=== PATIENT | male | born 1985 | race Caucasian/White ===

== ENCOUNTER 2020-07-01 13:54 | Emergency (ER) | payer OTHER ==
[~2020-07-01 13:54] MED LIST: PROCTOFOAM-HC 110 GM PR
[2020-07-01 14:55] LABS: BASOPHIL 0.7 % (0-2); EOSINOPHIL 0.6 % (0-5); LYMPHOCYTE 5.7 % (15-48); MCH 33.7 pg (25.0-31.0); MCHC 35.7 g/dL (32.0-36.0); MCV 94.4 fL (78.0-100.0); MONOCYTE 1.8 % (0-12); MPV 9.4 fL (6.0-9.5); NRBC 0; PLT 317 K/uL (150-400); RBC 4.98 M/uL (4.70-6.00); RDW 12.9 % (11.5-14.0); WBC 8.8 K/uL (4.0-10.5)
[2020-07-01 15:16] LABS: HGB 16.8 g/dl (13.2-18.0); NEUTROPHIL 90.9 % (41-80)
[2020-07-01 15:24] LABS: ACETAMINOPHEN (TYLENOL) 6.4 ug/mL (10.0-30.0); ALBUMIN 4.1 g/dL (3.4-5.0); BILIRUBIN - TOTAL 1.8 mg/dL (0.2-1.0); BUN/CREAT RATIO (CALC) 18.8 RATIO; CREATININE 0.96 mg/dL (0.67-1.17); GLOBULIN (CALCULATION) 3.6 g/dL; TOTAL PROTEIN 7.7 g/dL (6.4-8.2)
[2020-07-01 16:30] LABS: BILIRUBIN 2+ mg/dL (NEGATIVE); BLOOD NEGATIVE Ery/uL (NEGATIVE); CLARITY CLEAR (CLEAR); COLOR YELLOW (YELLOW); GLUCOSE (U) NORMAL (NORMAL); LEUKOCYTES NEGATIVE Leu/uL (NEGATIVE); NITRITE NEGATIVE (NEGATIVE); PROTEIN TRACE (LOW) mg/dL (NEGATIVE); pH 6.5 (5.0-9.0)
[2020-07-01 16:38] LABS: BACTERIA 1+; MUCOUS TRACE; URINARY WBC RARE
[2020-07-01 16:39] LABS: AMPHETAMINES POSITIVE (NEGATIVE); BARBITURATES NEGATIVE (NEGATIVE); ECSTASY (MDMA) NEGATIVE (NEGATIVE); MARIJUANA (THC) POSITIVE (NEGATIVE); METHADONE NEGATIVE (NEGATIVE); OPIATES NEGATIVE (NEGATIVE); OXYCODONE NEGATIVE (NEGATIVE)
[2020-07-01] MEDS ORDERED: ONDANSETRON ODT4 MG PO (17:17)
== END 2020-07-01 17:36 | disposition home or self-care (01) ==
LOC: FER 13:54
PROVIDERS: Emergency Medicine
DX: K75.9 Inflammatory liver disease, unspecified (principal); R42 Dizziness and giddiness; F17.210 Nicotine dependence, cigarettes, uncomplicated
CPT/HCPCS: 36415; 80053; 80305; 81001; 82150; 83690; 85025; G0480; J2405; J7120; Q9967